=== PATIENT | male | born 1955 | race Caucasian/White ===

== ENCOUNTER → 2017-04-06 | Outpatient (CLI) | payer OTHER, MEDICAID | LOC: FIMAGING 16:39 | PROVIDERS: ATTEND Physician Assistant | DX: J43.9 Emphysema, unspecified (principal); F17.200 Nicotine dependence, unspecified, uncomplicated ==

== ENCOUNTER 2017-04-13 11:18 | Emergency (ER) | payer OTHER, MEDICAID ==
[2017-04-13 11:33] VITALS: RESP 18; TEMP 97.9
--- NOTE | 2017-04-13 13:58 | EDPHY ---
H & P Time Seen by Provider: 04/13/17 13:28 HPI/ROS: CHIEF COMPLAINT: "Bumps in throat" HISTORY OF PRESENT ILLNESS: The patient is a 61-year-old male with a history of schizophrenia on Q too weak injections of Prolixin who presents to the emergency department with concerns regarding bumps in his throat. Patient states he has had a mild sore throat. He feels as though he has mild lymphadenopathy bilaterally. He has no difficulty swallowing. No fevers or chills. No nausea or vomiting. No neck pain or stiffness. No new movement issues. He has not changed his medications. REVIEW OF SYSTEMS: My complete review of systems is negative except as mentioned in the HPI. Past Medical/Surgical History: Includes schizophrenia, anxiety Past surgical history: Hernia repair Social history: The patient smokes. He denies alcohol. Smoking Status: Current every day smoker Physical Exam: Vitals noted. Afebrile GENERAL: Well-appearing, in no acute distress, alert. HEENT: Eyes normal to inspection, no signs of dehydration. Patient has mild pharyngeal erythema. There is no asymmetry or mass. Uvula is midline. I do not visualize any spots on his throat or tongue. He is mildly swollen subungal mucosa. No tenderness palpation. No mandibular fullness. NECK: No thyromegaly, no lymphadenopathy, supple. RESPIRATORY: Clear to auscultation bilaterally, no rales, rhonchi or wheezing. CVS: Regular rate and rhythm, no rubs, murmurs, or gallops. ABDOMEN: Soft, nontender, nondistended, no organomegaly. BACK: Normal to inspection, no CVA tenderness. SKIN: Normal color, no rash, warm, dry. No pallor. EXTREMITIES: No pedal edema, no joint swelling. NEURO/PSYCH: Alert and oriented, flat affect, the no focal deficits Constitutional: Initial Vital Signs Temperature (C) 36.6 C 04/13/17 11:31 Heart Rate 84 04/13/17 11:31 Respiratory Rate 18 04/13/17 11:31 Blood Pressure 106/60 04/13/17 11:31 O2 Sat (%) 97 04/13/17 11:31 O2 Delivery Mode Room Air Allergies/Adverse Reactions: Penicillins Allergy (Unknown, Verified 04/13/17 11:30) Home Medications: Medication Instructions Recorded fluPHENAZine HCL [Prolixin] 1 mg PO 06/26/14 AZITHROMYCIN [Z-PACK] 250 mg PO DAILY #1 packet 04/13/17 Medical Decision Making ED Course/Re-evaluation: In the emergency department I discussed possible etiologies with the patient. Due to his mild pharyngeal erythema he will be started on azithro. He has an allergy to penicillin. He is given warnings prior to leaving. He will return with worsening symptoms. Differential Diagnosis: My differential includes but is not limited to pharyngitis, peritonsillar abscess, retropharyngeal abscess, parotiditis, sialoadenitis Departure - Departure Disposition: Home, Routine, Self-Care Clinical Impression: Pharyngitis Qualifiers: Pharyngitis/tonsillitis etiology: unspecified etiology Qualified Code(s): J02.9 - Acute pharyngitis, unspecified Condition: Good Instructions: Pharyngitis (ED) Additional Instructions: Reading pain, shortness puddle fever or any other concerns. Use lemon drops 4x daily daily. Referrals: Leonides Morris MD [Primary Care Provider] - 5-7 days, call for appt. Prescriptions: AZITHROMYCIN [Z-PACK] 250 mg PO DAILY #1 packet
[2017-04-13 14:13] VITALS: BP 124/89; PULSE 82; O2SAT 96
== END 2017-04-13 14:13 | disposition home or self-care (01) ==
DX: J02.9 Acute pharyngitis, unspecified (principal); F17.200 Nicotine dependence, unspecified, uncomplicated